=== PATIENT | female | born 1945 | race Caucasian/White ===

== ENCOUNTER 2019-03-22 09:27 | Emergency (ER) | payer OTHER ==
[~2019-03-22] VITALS: Ht 162.6 cm; Wt 96.2 kg
[~2019-03-22 09:27] MED LIST: MOTRIN800 MG PO
[2019-03-22] MEDS ORDERED: NEURONTIN300 MG PO (09:33)
== END 2019-03-22 13:28 | disposition home or self-care (01) ==
LOC: ER 09:27
DX: M79.7 Fibromyalgia (principal)